=== PATIENT | male | born 1950 | race Caucasian/White ===

== ENCOUNTER 2016-12-03 10:22 | Emergency (ER) ==
[2016-12-03 10:25] VITALS: BP 166/79; TEMP 96.9; BMI 25.1
[2016-12-03] MEDS ORDERED: BOOSTRIX IM ONE (10:34)
[2016-12-03] MEDS ORDERED: LIDOCAINE 1 % AMP 5 ML (SUTURES) SUBCUT STA (10:34)
--- NOTE | 2016-12-03 10:41 | ED.PDOC ---
General ED Provider: Dr. 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[End]09: 30 96.9 74 18 96% 166/79 10/10- initially swollen into knuckles has resolved( note slight increased fullnees left 2/3 mcps vs right no inflammation no erythema- discussed concer for infection recc contact PMD today and arrange follow up but anticipate full recovery will close with caution to be opened if ss infection Time Seen by Physician: 10:35 Mode of Arrival: Walk-In Information Source: Patient Exam Limitations: No limitations Primary Care Provider: ANAHI WORTHINGTON Nursing and Triage Documentation Reviewed and Agree: No Review of Systems - Review Of Systems Constitutional: Reports: No symptoms Eyes: Reports: No symptoms Ears, Nose, Mouth, Throat: Reports: No symptoms Respiratory: Reports: No symptoms Cardiac: Reports: No symptoms GI: Reports: No symptoms : Reports: No symptoms Musculoskeletal: Reports: Joint swelling Skin: Reports: Lesions Neurological: Reports: No symptoms Endocrine: Reports: No symptoms Hematologic/Lymphatic: Reports: No symptoms All Other Systems: Other Past Medical History - Past Medical History Previously Healthy: Yes Endocrine: Reports: None Cardiovascular: Reports: None Respiratory: Reports: None Hematological: Reports: None Gastrointestinal: Reports: GERD Genitourinary: Reports: None Neuro/Psych: Reports: None Musculoskeletal: Reports: None Cancer: Reports: None - Surgical History General Surgical History: Reports: Cholecystectomy, Tonsillectomy, Orthopedic, Back Surgery (back surgeriesx4), Other (barretts esophagus) - Family History Family History: Reports: Unknown - Social History Smoking Status: Never smoker Hx Substance Use: No Alcohol Screening: Occasionally - Immunizations Tetanus Shot up to Date: No Physical Exam - Physical Exam Appearance: Well-appearing, Thin Neck: Supple Respiratory: Airway patent Skin: Warm, Dry Neurological: Sensation intact Procedures - Laceration/Wound Repair No standard instances Wound Description: Linear Wound Length (cm): 2cm Wound Explored: Clean Wound Irrigated: No Wound Prep: Hibiclens Anesthesia: Lidocaine Wound Repaired With: Sutures Suture Size and Type: 4-0 prolene Number of Sutures: 3 Sterile Dressing Applied?: Yes Splint Applied?: No Critical Care Note - Critical Care Note Total Time (mins): 0 Course - Course Orders, Labs, Meds: Orders Category Date Time Status Cephalexin [Keflex] MEDS 12/03/16 10:42 Stat 500 mg PO ONCE STA Diphth,Pertuss(Acell),Tet Vac [Boostrix] MEDS 12/03/16 10:34 Discontinued 0.5 ml IM .ONCE ONE Lidocaine HCl/Pf [Lidocaine 1 % Amp 5 ml (Sutures)] MEDS 12/03/16 10:34 Discontinued 5 ml SUBCUT ONCE STA Medications Generic Name Dose Route Start Last Admin Trade Name Freq PRN Reason Stop Dose Admin Cephalexin 500 mg 12/03/16 10:42 Keflex PO 12/03/16 10:43 ONCE STA Discontinued Medications Generic Name Dose Route Start Last Admin Trade Name Freq PRN Reason Stop Dose Admin Diphtheria/Pertussis/Tetanus Vacc 0.5 ml 12/03/16 10:34 12/03/16 10:41 Boostrix IM 12/03/16 10:35 0.5 ml .ONCE ONE Administration Lidocaine HCl 5 ml 12/03/16 10:34 Lidocaine 1 % Amp 5 Ml (Sutures) SUBCUT 12/03/16 10:35 ONCE STA Vital Signs: Temp Pulse Resp BP Pulse Ox 12/03/16 10:22 96.9 F L 74 18 166/79 H 96 Departure - Departure Time of Disposition: 11:02 Disposition: HOME SELF-CARE Discharge Problem: Laceration of hand Instructions: Finger Laceration (ED), Laceration (ED), Cellulitis (ED) Condition: Good Pt referred to PMD for follow-up: Yes Additional Instructions: for injection injury watch for signs of infection(redness swelling pain heat)or fever over 101.0 keflex for three to four days recheck if signs of infection suturesout in one week clean and dry for three days Prescriptions: Cephalexin [Keflex] 500 mg PO QID #40 capsule Allergies/Adverse Reactions: Allergies codeine Adverse Reaction (Verified 12/03/16 10:26) Home Medications: Ambulatory Orders Esomeprazole Magnesium [Nexium] 20 mg PO DAILY 11/16/15 Naproxen Sodium [Aleve] 220 mg PO DAILY 11/16/15 Cephalexin [Keflex] 500 mg PO QID #40 capsule 12/03/16
[2016-12-03] MEDS ORDERED: KEFLEX PO STA (10:42)
== END 2016-12-03 11:20 | disposition home or self-care (01) ==
LOC: ED 10:22
DX: S61.412A Laceration without foreign body of left hand, initial encounter (principal); W45.8XXA Other foreign body or object entering through skin, initial encounter
CPT/HCPCS: 90471; 99283